=== PATIENT | female | born 1965 | race Caucasian/White ===

== ENCOUNTER 2024-04-02 15:00 | Outpatient (RCR) | payer OTHER, SELFPAY | END 2024-07-31 23:59 | disposition home or self-care (01) | PROVIDERS: PCP Family Medicine; Visit Provider Physician Assistant | DX: N94.2 Vaginismus (principal); N39.3 Stress incontinence (female) (male); R52 Pain, unspecified; R27.8 Other lack of coordination; Z51.89 Encounter for other specified aftercare | CPT/HCPCS: 97110; 97140; 97162; 97535 ==